=== PATIENT | female | born 1960 | race Caucasian/White ===

== ENCOUNTER → 2016-06-02 | Outpatient (CLI) | payer BC ==
--- NOTE | 2016-06-02 15:01 | MAMMOGRAPHY REPORT ---
UNILATERAL RIGHT DIGITAL DIAGNOSTIC MAMMOGRAM TOMOSYNTHESIS WITH CAD: 06/02/2016 CLINICAL HISTORY: 56-year-old woman initially called back from screening mammography for a right sup erior asymmetry and right breast grouped microcalcifications. She presents for follow-up of the lorri rocalcifications. The asymmetry correlated with simple cyst which was aspirated and effaced mammogr aphically. TECHNIQUE: Right CC and MLO 2-D digital and tomosynthesis images, spot magnification right CC and M L views were obtained. Current study was also evaluated with a Computer Aided Detection (CAD) [place] bear. COMPARISON: Comparison is made to exams dated: 12/09/2015 mammogram, 11/26/2015 ultrasound, 11/26/2015 mammogram, 11/18/2015 mammogram, 06/28/2013 mammogram, and 06/23/2012 mammogram - [facility]. BREAST COMPOSITION: The tissue of the right breast is heterogeneously dense, which may obscure smal l masses. FINDINGS: The parenchymal pattern of the right breast is similar to prior exams. There are mild va scular calcifications. No obvious new mass or focal area of architectural distortion. The previous ly observed asymmetry in the superior posterior right breast on the MLO view is no longer seen, and this is concordant with the corresponding cysts which aspirated to resolution. On the spot magnification views, there is a dominant 6 mm cluster of microcalcifications in the uppe r outer posterior breast and a few other scattered punctate and round microcalcifications. Nearly a ll of the microcalcifications within this cluster demonstrate layering on the spot magnification MLO view confirming benign milk of calcium. No further close follow-up is needed at this time. No new suspicious microcalcifications are identified. IMPRESSION: ACR BI-RADS CATEGORY 2: BENIGN Nearly all of the microcalcifications in the 6 mm cluster within the right upper outer quadrant laye r on the spot magnification MLO view, confirming benign milk of calcium. There is no mammographic e vidence of malignancy. Return to annual mammogram screening schedule is recommended. The patient hanson s been verbally notified of the results. Approximately 10% of breast cancers are not detected with mammography. A negative mammographic repor t should not delay biopsy if a clinically suggestive mass is present. Kasey Morales M.D. ay/:06/02/2016 13:57:14 Elevator Attendant: Deann Evans RT(R)(M), [facility] letter sent: Normal / BI-RADS Code: ACR BI-RADS Category 2: Benign
== END | disposition home or self-care (01) ==
LOC: C.MAMM 13:26
PROVIDERS: ATTEND Nurse Practitioner
DX: R92.0 Mammographic microcalcification found on diagnostic imaging of breast (principal)

== ENCOUNTER → 2016-06-16 | Outpatient (CLI) | payer BC ==
[2016-06-16 12:13] LABS: BASO % 0.5 %; BASO ABS # 0.03 K/uL (0-0.2); COMPLETE YES; EOS % 2.6 %; HEMATOCRIT 39.8 % (37-47); IG% 0.2 %; LYMPH % 40.1 %; LYMPH ABS # 2.31 K/uL (1.2-3.4); MEAN CELL VOLUME 89.6 fL (80-100); MEAN CORPUSCULAR HEMOGLOBIN 30.2 pg (25-34); MEAN CORPUSCULAR HGB CONC 33.7 g/dl (32-36); MONO % 11.1 %; NEUT % 45.5 %; PLATELET COUNT 230 K/uL (130-400); RED BLOOD COUNT 4.44 M/uL (4.2-5.4); WHITE BLOOD COUNT 5.76 K/uL (4.8-10.8)
[2016-06-16 12:27] LABS: ALT/SGPT 20 U/L (12-78); BLOOD UREA NITROGEN 12 mg/dl (7-18); BUN/CREATININE RATIO 15.3 (10-20); CALCIUM 9.2 mg/dl (8.5-10.1); CARBON DIOXIDE 29 mmol/L (21-32); CHLORIDE 103 mmol/L (98-107); CHOLESTEROL 257 mg/dl (0-200); CREATININE 0.77 mg/dl (0.60-1.20); GLUCOSE 102 mg/dl (70-99); SODIUM 139 mmol/L (136-145); TRIGLYCERIDES 126 mg/dl (0-150); VERY LOW DENSITY LIPOPROT CALC 25 mg/dl
[2016-06-16 12:31] LABS: ALB/GLOB RATIO 1.2 (0.9-2); ALKALINE PHOSPHATASE 90 U/L (45-117); AST/SGOT 14 U/L (15-37); CHOLESTEROL/HDL RATIO 4.9; HDL CHOLESTEROL 52 mg/dl; LDL CHOLESTEROL CALCULATED 180 mg/dl
[2016-06-16 12:36] LABS: ESTIMATED AVERAGE GLUCOSE 114 mg/dl; HA1C FLAG Normal (Normal)
[2016-06-16 12:48] LABS: URINE APPEARANCE CLOUDY (CLEAR); URINE BILIRUBIN NEG (NEG); URINE COLOR YELLOW; URINE EPITHELIAL CELL AUTO >30 /lpf (0-5); URINE NITRITE NEG (NEG); URINE PH 7.5 (4.5-7.5); URINE SPECIFIC GRAVITY 1.017 (1.000-1.030); UROBILINOGEN NEG (NEG); ZZUR CULT IF INDIC CLEAN CATCH NO
[2016-06-16 13:02] LABS: MANUAL MICROSCOPIC REQUIRED? NO; REVIEW REQ? NO
== END | disposition home or self-care (01) ==
LOC: C.LABBFT 07:47
PROVIDERS: ATTEND Internal Medicine
DX: R74.8 Abnormal levels of other serum enzymes (principal); E78.00 Pure hypercholesterolemia, unspecified; R73.9 Hyperglycemia, unspecified; R10.12 Left upper quadrant pain

== ENCOUNTER → 2016-06-18 | Outpatient (CLI) | payer BC ==
--- NOTE | 2016-06-18 09:39 | DIAGNOSTIC IMAGING REPORT ---
ABDOMEN COMPLETE (US) CLINICAL HISTORY: Acute left upper quadrant abdominal pain COMPARISON STUDY: No previous studies for comparison. FINDINGS: The pancreas appears sonographically normal. The liver appears sonographically normal. The gallbladder appears sonographically normal. There is no ductal dilatation. The common bile duct measures 5 mm. The spleen measures 9 cm in length. No splenic masses are visualized. The right kidney measures 9.3 cm in length. The left kidney measures 9.4 cm in length. No renal masses are visualized. There is no hydronephrosis. There is no evidence of abdominal aortic aneurysm. IMPRESSION: Normal study Electronically signed by: Mitul Brambila M.D. 06/18/2016 9:37 AM Dictated Date/Time: 06/18/2016 9:36 AM
== END | disposition home or self-care (01) ==
LOC: C.ULTR 09:03
PROVIDERS: ATTEND Internal Medicine
DX: R10.12 Left upper quadrant pain (principal)

== ENCOUNTER → 2016-09-21 | Outpatient (CLI) | payer BC | END | disposition home or self-care (01) | LOC: C.MAMM 12:52 | PROVIDERS: ATTEND Internal Medicine | DX: Z78.0 Asymptomatic menopausal state (principal); M85.89 Other specified disorders of bone density and structure, multiple sites ==

== ENCOUNTER → 2016-10-25 | Outpatient (CLI) | payer BC | END | disposition home or self-care (01) | LOC: C.PAPS 13:43 | PROVIDERS: ATTEND Obstetrics & Gynecology | DX: Z01.419 Encounter for gynecological examination (general) (routine) without abnormal findings (principal) ==

== ENCOUNTER → 2017-06-03 | Outpatient (CLI) | payer BC ==
--- NOTE | 2017-06-06 12:43 | MAMMOGRAPHY REPORT ---
BILATERAL DIGITAL SCREENING MAMMOGRAM TOMOSYNTHESIS WITH CAD: 06/03/2017 CLINICAL HISTORY: Routine screening. Patient has no complaints. TECHNIQUE: Breast tomosynthesis in addition to standard 2D mammography was performed. Current study was also evaluated with a Computer Aided Detection (CAD) system. COMPARISON: Comparison is made to exams dated: 06/02/2016 mammogram, 11/18/2015 mammogram, 11/26/2015 ma mmogram, 06/28/2013 mammogram, 06/23/2012 mammogram, and 02/09/2010 mammogram - [facility]. BREAST COMPOSITION: The tissue of both breasts is heterogeneously dense, which may obscure small mas ses. FINDINGS: No suspicious masses, calcifications, or areas of architectural distortion are noted in ei ther breast. Again noted are multiple small circumscribed masses, most prominent in the left breast on the tomosynthesis images, likely representing cysts. A circumscribed benign-appearing 15 mm mass with associated calcifications is again noted within the left medial posterior breast, also felt to represent a cyst as the calcifications were shown to layer within the mass on the prior 2015 exam. S cattered bilateral benign-appearing calcifications are not significantly changed. IMPRESSION: ACR BI-RADS CATEGORY 2: BENIGN There is no mammographic evidence of malignancy. A 1 year screening mammogram is recommended. The pa tient will receive written notification of the results. Approximately 10% of breast cancers are not detected with mammography. A negative mammographic report should not delay biopsy if a clinically suggestive mass is present. Tabitha Armas M.D. /:06/03/2017 16:20:17 Clinical Research Nurse: Becca ABDUL(Jaron)(Yolanda), [facility] letter sent: Normal 1/2 BI-RADS Code: ACR BI-RADS Category 2: Benign
== END | disposition home or self-care (01) ==
LOC: C.MAMM 08:47
PROVIDERS: ATTEND Internal Medicine
DX: Z12.31 Encounter for screening mammogram for malignant neoplasm of breast (principal)